=== PATIENT | male | born 1980 | race Caucasian/White ===

== ENCOUNTER 2018-11-19 18:12 | Inpatient (IN) ==
[2018-11-19] MEDS ORDERED: Aluminum/Magnesium/Simethacone Susp 30 ML UDC PO PRN (21:06)
[2018-11-19] MEDS ORDERED: Acetaminophen 325 MG Tablet PO PRN (21:06)
[2018-11-20 08:40] LABS: Anion Gap 7 meq/L (5-15); Blood Urea Nitrogen 8 mg/dL (7-18); Calcium 8.8 mg/dL (8.5-10.1); Carbon Dioxide 25.2 meq/L (21.0-32.0); Chloride 111 meq/L (98-107); Glomerular Filtration Rate Greater Than 89 mL/min (>89); Glucose,Random 105 mg/dL (74-106); Sodium 143 meq/L (136-145)
[2018-11-20 08:41] LABS: Cholesterol 200 mg/dL (120-200)
[2018-11-20 08:43] LABS: Chol/HDL Ratio 4.88 Ratio; HDL Cholesterol 40.9 mg/dL (40.0-60.0); LDL Cholesterol,Calculated 104 mg/dL (0-99); Triglycerides 274 mg/dL (42-150)
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
[2018-11-21 12:40] LABS: Hemoglobin A1c 5.1 % (4.3-6.0)
--- NOTE | 2018-11-21 17:22 | P.PNPSY ---
Subjective Chief Complaint: Homelessness Remarks: Reviewed electronic medical records and discussed case with staff. Follow-up was conducted in the hallway with IZABEL Flores present. Patient is currently not on any medications. He states that he feels "all right". Reports that he slept and ate well. Reports his mood as "okay". He denies suicidal ideations. His affect is slightly flat but he seems to be somewhat cognitively impaired. Mental Status Examination Appearance: Appropriate Consciousness: Alert Orientation: x4 Motor Activity: Normal gait Speech: Unremarkable (Slight speech impediment) Language: Adequate Fund of Knowledge: Adequate Attention and Concentration: Adequate Memory: Unremarkable Mood: Appropriate Affect: Appropriate Thought Process & Associations: Intact Thought Content: Appropriate Hallucination Type: None Delusion Type: None Suicidal Ideation: Yes Suicidal Plan: No Suicidal Intention: No Homicidal Ideation: No Homicidal Plan: No Homicidal Intention: No Insight: Fair Judgment: Impulsive Assessment and Plan - Assessment (1) Adjustment disorder Code(s): F43.20 - Adjustment disorder, unspecified Status: Acute (2) Malingering Code(s): Z76.5 - Malingerer [conscious simulation] Status: Acute - Plan Plan: Patient will be reevaluated by the attending psychiatrist. Continue with current treatment plan. Justification for Continued Inpatient Stay: Moving this patient to a less restrictive environment would likely result in decompensation.
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
== END 2018-11-22 12:20 | disposition home or self-care (01) | DRG 882 ==
LOC: H270 20:04
PROVIDERS: ADMIT Psychiatry & Neurology Child & Adolescent Psychiatry; ATTEND Psychiatry & Neurology Child & Adolescent Psychiatry